=== PATIENT | male | born 1970 | race Caucasian/White ===

== ENCOUNTER 2017-01-09 16:05 | Emergency (ER) | payer BC ==
[~2017-01-09 16:05] MED LIST: ZESTRIL10 M1 PO
[2017-01-09] MEDS ORDERED: KEFLEX500 MG PO (17:51)
== END 2017-01-09 17:51 | disposition home or self-care (01) ==
LOC: SED 16:05
DX: S71.111A Laceration without foreign body, right thigh, initial encounter (principal); W26.0XXA Contact with knife, initial encounter; Y92.009 Unspecified place in unspecified non-institutional (private) residence as the place of occurrence of the external cause; I10 Essential (primary) hypertension
CPT/HCPCS: 12001; 90715; 99283